=== PATIENT | female | born 1980 | race African-American/Black ===

== ENCOUNTER 2025-01-14 19:05 | Emergency (ER) | payer OTHER ==
[~2025-01-14] VITALS: Ht 167.6 cm; Wt 113.4 kg
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
[2025-01-14 20:55] LABS: Hematocrit 38.9 % (36.0-46.0); Hemoglobin 13.1 g/dL (12.2-16.2); Mean Corpuscular Hemoglobin 30.7 pg (28.0-32.0); Mean Corpuscular Volume 91.4 fL (80.0-100.0); Nucleated Red Blood Cells % 0.0 %
[2025-01-14 21:12] LABS: Alanine Aminotransferase 29 U/L (7-40); Alkaline Phosphatase 93 U/L (46-116); Anion Gap 9 (5-15); BUN/Creatinine Ratio 10.7 (10.0-20.0); Bilirubin, Total 0.3 mg/dL (0.2-1.0); Blood Urea Nitrogen 11 mg/dL (9-23); Calcium 9.5 mg/dL (8.7-10.4); Carbon Dioxide 24 mmol/L (20-31); Chloride 104 mmol/L (98-107); Glucose 92 mg/dL (74-106); Magnesium 2.0 mg/dL (1.6-2.6); Potassium 4.1 mmol/L (3.5-5.1); Sodium 137 mmol/L (136-145)
[2025-01-14 21:16] LABS: Albumin 5.0 g/dL (3.2-4.8); Total Protein 8.2 g/dL (5.7-8.2)
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
--- NOTE | 2025-01-15 00:33 | ECG ---
[facility] Test Date: 2025-01-14 Test Time: 19:15:16 Pat Name: CARLI GUAJARDO Department: ED Room: Gender: F Materials Specialist: DINAH : 1980 Requested By: EMERGENCY EMERGENCY Order Number: [id number] Reading MD: Measurements Intervals [place] Rate: 90 P: 74 OK: 164 QRS: 11 QRSD: 75 T: 67 QT: 371 QTc: 454 Interpretive Statements Sinus rhythm Low voltage, precordial leads Please click the below link to view image of tracing.
[2025-01-15] MEDS: HYDROcodone-ACET 5/325MG TAB PO ONE (00:55)
[2025-01-15 01:53] VITALS: BP 140/97; PULSE 77; RESP 18; TEMP 97.8; O2SAT 98
== END 2025-01-15 03:13 | disposition left against medical advice (07) ==
LOC: ER 19:05 → EEVIPCON 19:05 → EDBD 19:05 → ER 01-15 03:13
DX: R55 Syncope and collapse (principal); I10 Essential (primary) hypertension; J45.909 Unspecified asthma, uncomplicated; S09.8XXA Other specified injuries of head, initial encounter; V89.2XXA Person injured in unspecified motor-vehicle accident, traffic, initial encounter; Y93.89 Activity, other specified; Y92.488 Other paved roadways as the place of occurrence of the external cause; Y99.8 Other external cause status
CPT/HCPCS: 36415; 70450; 71045; 80053; 83735; 84484; 85025; 85379; 93005